=== PATIENT | female | born 1975 ===

== ENCOUNTER 2021-11-15 16:58 | Emergency (ER) | payer OTHER ==
[~2021-11-15] VITALS: Ht 162.6 cm; Wt 79.4 kg
[2021-11-15] MEDS ORDERED: ZOLPIDEM TARTRA10 MG PO (18:46)
[2021-11-15] MEDS ORDERED: VENLAFAXINE HCL75 M1 PO (18:46)
[2021-11-15] MEDS ORDERED: VYVANSE50 MG PO (18:47)
== END 2021-11-15 20:20 | disposition home or self-care (01) ==
LOC: ER 16:58
DX: N39.0 Urinary tract infection, site not specified (principal); M54.9 Dorsalgia, unspecified; Z91.013 Allergy to seafood